=== PATIENT | female | born 1990 | race Two or more races ===

== ENCOUNTER 2019-09-14 09:25 | Emergency (ER) | payer OTHER ==
[2019-09-14 09:43] VITALS: TEMP 97.5; BMI 37.2
--- NOTE | 2019-09-14 10:19 | PDOC ---
History of Present Illness - General Chief Complaint: Vaginal Bleeding Stated Complaint: 5WKS/ BLEEDING Time Seen by Provider: 09/14/19 10:19 History Source: Patient Exam Limitations: No Limitations - History of Present Illness Initial Comments: 28-year-old female with no past medical history A0 (prior twin gestation) currently 8W (LMP 07/17/2019) presented to the emergency department for painless vaginal bleeding since yesterday. Patient reported that she has noted red blood when she uses the bathroom, noting it on the toilet paper when she wipes. She reported she believes is coming from her vagina, and not from her stool. She denied using any pads at all, notice showing those is when she wipes. She denied pelvic pain, cramping, nausea, vomiting, diarrhea, abdominal pain, lightheadedness, chest pain, shortness of breath, syncope. 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 ROS General: denied fever, chills, generalized weakness. HEENT: denied sore throat, rhinorrhea, ear pain. Cardiovascular: denied chest pain, palpitations, syncope, diaphoresis. Respiratory: denied shortness of breath, cough, sputum production, hemoptysis. Gastrointestinal: admitted to vaginal bleeding. denied abdominal pain, nausea, vomiting, diarrhea, constipation, blood in stool, vaginal discharge, pelvic pain. Genitourinary: denied dysuria, increased urinary frequency, hematuria, urinary incontinence, flank pain. Back: denied back pain. Musculoskeletal: denied joint pain, muscle pain, joint swelling. Neurological: denied headache, dizziness, numbness, tingling, weakness. Integumentary: denied rash, laceration, abrasion. Hematologic/Lymphatic: denied bruising or bleeding. PE Constitutional: Well-nourished, Well-developed, appearing stated age. HEENT: head is normocephalic, atraumatic. EOMI. PERRLA. Neck: supple. Full ROM. Cardiovascular: regular heart rhythm. Normal S1 and S2. no murmurs. no pericardial friction rub. Respiratory: clear to auscultation bilaterally. no crackles, rhonchi or wheezing. no stridor. Gastrointestinal: soft, flat, nontender. normal bowel sounds. no rebound, guarding, or masses. Extremities: peripheral pulses intact and equal. no lower extremity edema noted. Neurological: CN 2-12 grossly intact. moves all four extremities. Psych: awake, alert, oriented x3. follows commands. answers questions appropriately. Pelvic: normal external genitalia. cervcal os closed. no CMT. no adnexal tenderness bilaterally. scant dried old blood in vaginal vault. Past History - Past Medical History Allergies/Adverse Reactions: Allergies Allergy/AdvReac Type Severity Reaction Status Date / Time No Known Allergies Allergy Verified 09/14/19 09:40 Home Medications: Ambulatory Orders No Home Medications 0 dose .ROUTE UTDICT 08/04/12 Cephalexin Monohydrate [Keflex -] 500 mg PO BID 7 Days #14 capsule 09/14/19 - Reproductive History (#): 1 Para: 0 - Psycho Social/Smoking Cessation Hx Smoking Status: No Smoking History: Never smoked Have you smoked in the past 12 months: No Number of Cigarettes Smoked Daily: 0 Information on smoking cessation initiated: No Hx Alcohol Use: No Drug/Substance Use Hx: No Hx Substance Use Treatment: No *Physical Exam - Vital Signs Last Vital Signs Temp Pulse Resp BP Pulse Ox 97.5 F L 74 18 107/52 L 100 09/14/19 09:40 09/14/19 09:40 09/14/19 09:40 09/14/19 09:40 09/14/19 09:40 ED Treatment Course - LABORATORY CBC & Chemistry Diagram: 09/14/19 10:52 09/14/19 10:52 Medical Decision Making - Medical Decision Making 28 year old female with above PMH presented to ED for painless vaginal bleeding since yesterday. Initial Vital Signs Temp Pulse Resp BP Pulse Ox 97.5 F L 74 18 107/52 L 100 09/14/19 09:40 09/14/19 09:40 09/14/19 09:40 09/14/19 09:40 09/14/19 09:40 Afebrile. No tachycardia. No tachypnea. Normal BP for . No hypoxia on room air. 09/14/19 12:12 Laboratory Last Values WBC 6.1 K/mm3 (4.0-10.0) 09/14/19 10:52 RBC 4.70 M/mm3 (3.60-5.2) 09/14/19 10:52 Hgb 11.8 GM/dL (10.7-15.3) 09/14/19 10:52 Hct 35.9 % (32.4-45.2) D 09/14/19 10:52 MCV 76.4 fl (80-96) L 09/14/19 10:52 MCH 25.1 pg (25.7-33.7) L 09/14/19 10:52 MCHC 32.9 g/dl (32.0-36.0) 09/14/19 10:52 RDW 18.9 % (11.6-15.6) H 09/14/19 10:52 Plt Count 186 K/MM3 (134-434) D 09/14/19 10:52 MPV 9.2 fl (7.5-11.1) 09/14/19 10:52 Absolute Neuts (auto) 3.9 K/mm3 (1.5-8.0) 09/14/19 10:52 Neutrophils % 64.8 % (42.8-82.8) 09/14/19 10:52 Lymphocytes % 24.2 % (8-40) D 09/14/19 10:52 Monocytes % 9.5 % (3.8-10.2) 09/14/19 10:52 Eosinophils % 1.1 % (0-4.5) 09/14/19 10:52 Basophils % 0.4 % (0-2.0) 09/14/19 10:52 Nucleated RBC % 0 % (0-0) 09/14/19 10:52 PT with INR 12.00 SEC (9.7-13.0) 09/14/19 10:52 INR 1.02 (0.83-1.09) 09/14/19 10:52 PTT (Actin FS) 35.1 SECONDS (25.2-36.5) 09/14/19 10:52 Sodium 139 mmol/L (136-145) 09/14/19 10:52 Potassium 4.4 mmol/L (3.5-5.1) 09/14/19 10:52 Chloride 107 mmol/L (98-107) 09/14/19 10:52 Carbon Dioxide 27 mmol/L (21-32) 09/14/19 10:52 Anion Gap 6 MMOL/L (8-16) L 09/14/19 10:52 BUN 10.2 mg/dL (7-18) 09/14/19 10:52 Creatinine 0.5 mg/dL (0.55-1.3) L 09/14/19 10:52 Est GFR (CKD-EPI)AfAm 151.59 09/14/19 10:52 Est GFR (CKD-EPI)NonAf 130.79 09/14/19 10:52 Random Glucose 91 mg/dL (74-106) 09/14/19 10:52 Calcium 8.3 mg/dL (8.5-10.1) L 09/14/19 10:52 Total Bilirubin 0.2 mg/dL (0.2-1) 09/14/19 10:52 AST 14 U/L (15-37) L 09/14/19 10:52 ALT 23 U/L (13-61) 09/14/19 10:52 Alkaline Phosphatase 77 U/L (45-117) 09/14/19 10:52 Total Protein 7.0 g/dl (6.4-8.2) 09/14/19 10:52 Albumin 3.6 g/dl (3.4-5.0) 09/14/19 10:52 Beta HCG, Quant 9270.3 mIU/ml 09/14/19 10:52 Urine Color Yellow 09/14/19 11:28 Urine Appearance Cloudy 09/14/19 11:28 Urine pH 7.5 (5.0-8.0) 09/14/19 11:28 Ur Specific [place] 1.012 (1.010-1.035) 09/14/19 11:28 Urine Protein Negative (NEGATIVE) 09/14/19 11:28 Urine Glucose (UA) Negative (NEGATIVE) 09/14/19 11:28 Urine Ketones Negative (NEGATIVE) 09/14/19 11:28 Urine Blood 3+ (NEGATIVE) H 09/14/19 11:28 Urine Nitrite Negative (NEGATIVE) 09/14/19 11:28 Urine Bilirubin Negative (NEGATIVE) 09/14/19 11:28 Urine Urobilinogen 0.2 mg/dL (0.2-1.0) 09/14/19 11:28 Ur Leukocyte Esterase Negative (NEGATIVE) 09/14/19 11:28 Urine WBC (Auto) 3 /hpf (0-5) 09/14/19 11:28 Urine RBC (Auto) 1 /hpf (0-4) 09/14/19 11:28 Urine Casts (Auto) 5 /lpf (0-8) 09/14/19 11:28 U Epithel Cells (Auto) 12.6 /HPF (0-5/HPF) 09/14/19 11:28 Urine Bacteria (Auto) 66.6 /hpf (NEGATIVE) 09/14/19 11:28 Urine HCG, Qual Positive 09/14/19 11:28 No leukocytosis. No anemia. Decreased MCV. No thrombocytopenia. No ransaminitis. UTI in -Medications ordered: Keflex 500 mg PO once Pending T&S, TVUS. -US reported they are busy 09/14/19 12:57 TVUS Report: Maynor Gil Name: [facility] DEPARTMENT OF RADIOLOGY Phys: Marlys Khalil RESIDENT : 1990 Age: 28 Sex: F [facility] Acct: [id number] Loc: [address] Exam Date: 09/14/19 Status: [place] [id number] Unit Number: [id number] EXAM#: TYPE/EXAM: RESULT: [id number] US/TRANSVAGINAL US PREG Positive beta hCG level Pelvis ultrasound Transabdominal transvaginal images. Compared to prior pelvis ultrasound dated 11/26/2015 LMP: 07/17/2019 compatible with 8 weeks and 3 days of The uterus measures 9.1 x 5.8 cm in sagittal and AP dimension. An intrauterine gestational sac is present with a mean sac diameter of 6.2 mm compatible with 5 weeks 1 day of gestation. A tiny yolk sac is seen measuring 2 mm. No pole is identified. The right ovary measures 3 x 1.6 cm with a round echogenic density and a hypoechoic center me asuring 1.3 x 1.3 cm likely a corpus luteum cyst. Normal vascular flow, arterial and venous Left ovary measures 2.4 x 1.5 cm with normal vascular flow, arterial and venous. There is no free fluid in the cul-de-sac IMPRESSION: Single intrauterine gestational sac compatible with 5 weeks 1 day of gestation. No pole is identified. Correlation with serial quantitative serum beta hCG and close follow- up ultrasound is needed. 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 Reported By: Kori Grewal MD 09/14/19 1255 Results explained to patient with guyanese translation. Pt informed she will need to return in 48 hours for repeat beta testing. Pt expressed understanding and agreed with plan for care. Pt advised to refrain from inserting anything into vagina, heavy lifting. Pt given return precautions. Pt prescribed Keflex for UTI. First dose given in ED. No need for Rhogam - Rh + Pt discharged. Discharge - Discharge Information Problems reviewed: Yes Clinical Impression/Diagnosis: Vaginal bleeding during , UTI in Condition: Stable Disposition: HOME - Admission No - Additional Discharge Information Prescriptions: Cephalexin Monohydrate [Keflex -] 500 mg PO BID 7 Days #14 capsule - Follow up/Referral Referrals: Sherin Torres MD [Staff Physician] - - Patient Discharge Instructions Patient Printed Discharge Instructions: DI for Urinary Tract Infection (UTI), DI for Vaginal Bleeding During Additional Instructions: You have a urinary tract infection. Urinary tract infections and can cause spontaneous miscarriages. I have sent an antibiotic to your pharmacy, please take all pills as instructed on label. Do not stop early even if you are feeling better. You must return to the emergency department at 48 hours from your initial emergency department visit. Please return to this emergency department, as all of your lab work is in our records. Take Tylenol [id number] if you injure pain. Tylenol is safe in . Follow instructions on the label. Buy over the counter. Return to the emergency department for soaking through two pads over two consecutive hours, lightheadedness, chest pain, shortness of breath, increasing pain, lightheadedness, passing out, fever, or any other new, worsening, or concerning symptoms. Tiene jaja infeccin del tracto urinario. Las infecciones del tracto urinario y el embarazo pueden causar abortos espontneos. Envi un antibitico a barnett farmacia, tome todas las pldoras joan se indica en la etiqueta. No pare temprano, incluso si se siente mejor. Debe regresar al departamento de emergencias a las 48 horas de barnett visita inicial al departamento de emergencias. Regrese a amy departamento de emergencias, ya que todo barnett trabajo de laboratorio est en nuestros registros. [place] Tylenol sin receta si le duele el dolor. Tylenol es seguro en el embarazo. Siga las instrucciones en la etiqueta. Comprar sin receta. Regrese al departamento de emergencias para empaparse con dos almohadillas jonathan dos horas consecutivas, mareos, dolor en el pecho, dificultad para respirar, aumento del dolor, mareos, desmayos, fiebre o cualquier otro sntoma nuevo, que empeore o se relacione. Print Language: PORTUGUESE - Post Discharge Activity Work/Back to School Note: Back to Work
[2019-09-14 11:03] LABS: BASO % 0.4 % (0-2.0); EOS % 1.1 % (0-4.5); HEMATOCRIT 35.9 % (32.4-45.2); HEMOGLOBIN 11.8 GM/dL (10.7-15.3); LYMPH % 24.2 % (8-40); MCH 25.1 pg (25.7-33.7); MCHC 32.9 g/dl (32.0-36.0); MEAN CELL VOLUME 76.4 fl (80-96); MEAN PLT VOLUME 9.2 fl (7.5-11.1); MONO % 9.5 % (3.8-10.2); NEUT % 64.8 % (42.8-82.8); PLATELET COUNT 186 K/MM3 (134-434); RDW 18.9 % (11.6-15.6); WHITE BLOOD COUNT 6.1 K/mm3 (4.0-10.0)
[2019-09-14 11:16] LABS: INR 1.02 (0.83-1.09)
[2019-09-14 11:19] LABS: ACTIVATED PTT 35.1 SECONDS (25.2-36.5)
[2019-09-14 11:58] LABS: ALBUMIN 3.6 g/dl (3.4-5.0); BILIRUBIN,TOTAL 0.2 mg/dL (0.2-1); BLOOD UREA NITROGEN 10.2 mg/dL (7-18); CALCIUM 8.3 mg/dL (8.5-10.1); CREATININE 0.5 mg/dL (0.55-1.3); POTASSIUM 4.4 mmol/L (3.5-5.1)
[2019-09-14 11:59] LABS: HCG,QUALITATIVE URINE Positive
[2019-09-14 12:02] LABS: EPI CELLS 12.6 /HPF (0-5/HPF); HYALINE CASTS 5 /lpf (0-8); PH,URINE 7.5 (5.0-8.0); URINE APPEARANCE CLOUDY; URINE BACTERIA 66.6 /hpf (NEGATIVE); URINE BILIRUBIN NEGATIVE (NEGATIVE); URINE COLOR YELLOW; URINE GLUCOSE (UA) NEGATIVE (NEGATIVE); URINE KETONE NEGATIVE (NEGATIVE); URINE LEUK ESTERASE NEGATIVE (NEGATIVE); URINE NITRITE NEGATIVE (NEGATIVE); URINE PROTEIN NEGATIVE (NEGATIVE); URINE RBC 1 /hpf (0-4); URINE UROBILINOGEN 0.2 mg/dL (0.2-1.0); URINE WBC 3 /hpf (0-5)
[2019-09-14] MEDS ORDERED: CEPHALEXIN MONOHYDRATE 500 MG CAPSULE (UD) PO ONE (12:41)
[2019-09-14] MEDS ORDERED: CEPHALEXIN MONOHYDRATE 500 MG CAPSULE (UD) ONE (13:05)
--- NOTE | 2019-09-14 13:22 | PDOC ---
Documentation entered by Ludivina Scott SCRIBE, acting as scribe for Prema Vyas MD. Prema Vyas MD: This documentation has been prepared by the Tyler turner Nirvannie, SCRIBE, under my direction and personally reviewed by me in its entirety. I confirm that the documentation accurately reflects all work, treatment, procedures, and medical decision making performed by me. Attending Attestation - Resident Resident Name: Marlys Khalil - ED Attending Attestation I have performed the following: I have examined & evaluated the patient, The case was reviewed & discussed with the resident, I agree w/resident's findings & plan, Exceptions are as noted - HPI HPI: 09/14/19 12:08 The patient is a 28 year old 5 weeks female , with no significant past medical history, who presents to the emergency department with 2 days vaginal bleeding. Patient describes her vaginal bleeding as brownish/red in coloration. Allergies: NKA LMP: 07/17 - Physicial Exam PE: GENERAL: Awake, alert, and fully oriented, in no acute distress HEAD: No signs of trauma EYES: PERRLA, EOMI, sclera anicteric, conjunctiva clear ENT: Auricles normal inspection, hearing grossly normal, nares patent, oropharynx clear without exudates. Moist mucosa NECK: Normal ROM, supple, no lymphadenopathy, JVD, or masses LUNGS: Breath sounds equal, clear to auscultation bilaterally. No wheezes, and no crackles HEART: Regular rate and rhythm, normal S1 and S2, no murmurs, rubs or gallops ABDOMEN: Soft, nontender, normoactive bowel sounds. No guarding, no rebound. No masses EXTREMITIES: Normal range of motion, no edema. No clubbing or cyanosis. No cords, erythema, or tenderness NEUROLOGICAL: Cranial nerves II through XII grossly intact. Normal speech, normal gait. Motor and sensation intact SKIN: Warm, dry, normal turgor, no rashes or lesions noted. - Medical Decision Making Pt is approximately 8 WGA by LMP, but ultrasound appears to be 5 WGA. Counseled patient to return in 2 days for repeat B-HCG, poss sono depending on findings.
[2019-09-14 13:55] VITALS: BP 101/60; PULSE 64
== END 2019-09-14 13:45 | disposition home or self-care (01) ==
LOC: JER 09:25
DX: O26.891 Other specified pregnancy related conditions, first trimester (principal); Z3A.08 8 weeks gestation of pregnancy; N39.0 Urinary tract infection, site not specified
CPT/HCPCS: 36415; 76817-TC; 80053; 81003; 84702; 84703; 85025; 85610; 85730; 86850; 86900; 86901; 87086; 99284-25

== ENCOUNTER 2019-09-17 08:59 | Emergency (ER) | payer OTHER ==
[2019-09-17 09:05] VITALS: BP 123/50; PULSE 67; TEMP 97.8; BMI 23.6
--- NOTE | 2019-09-17 09:42 | PDOC ---
History of Present Illness - General Chief Complaint: [facility] [place] Stated Complaint: 5 W PREG/URINARY PROBLEM Time Seen by Provider: 09/17/19 09:21 History Source: Patient Exam Limitations: No Limitations - History of Present Illness Initial Comments: 09/17/19 09:41 Patient is a 28-year-old female who is 8 weeks 6 days gestation who presents to the ED for a repeat beta-hCG. She was seen 2 days ago and diagnosed with UTI and after having some vaginal bleeding. She has no pain and states her bleeding has slowed down tremendously. She denies any fevers or chills. She has been taking her antibiotics as prescribed. She denies any dysuria or hematuria. Her previous beta-hCG was 9270. She states she is otherwise feeling well and was advised to come to the ED for repeat blood work. She has an appointment with her HOT TAR ROOFER in 3 days for her first evaluation. Past History - Past Medical History Allergies/Adverse Reactions: Allergies Allergy/AdvReac Type Severity Reaction Status Date / Time No Known Allergies Allergy Verified 09/14/19 09:40 Home Medications: Ambulatory Orders No Home Medications 0 dose .ROUTE UTDICT 08/04/12 Cephalexin Monohydrate [Keflex -] 500 mg PO BID 7 Days #14 capsule 09/14/19 Asthma: No Cancer: No Cardiac Disorders: No Diabetes: No HTN: No Seizures: No Thyroid Disease: No - Surgical History Cholecystectomy: Yes - Reproductive History Is Patient Now?: Yes (#): 1 Para: 0 - Psycho Social/Smoking Cessation Hx Smoking Status: No Smoking History: Never smoked Have you smoked in the past 12 months: No Number of Cigarettes Smoked Daily: 0 Information on smoking cessation initiated: No Hx Alcohol Use: No Drug/Substance Use Hx: No Hx Substance Use Treatment: No Review of Systems - Review of Systems Comments:: 09/17/19 09:43 - Review of Systems Able to Perform ROS?: Yes Constitutional: No: Fever, Chills, Loss of Appetite, Night Sweats, Weakness HEENTM: No: Eye Pain, Vision changes, Ear Pain, Throat Pain, Throat Swelling, Mouth Pain, Difficulty Swallowing Respiratory: No: Cough, Shortness of Breath, Wheezing, Sputum Production Cardiac (ROS): No: Chest Pain, Chest Tightness, Palpitations, Irregular Heart Beat, Edema ABD/GI: No: Nausea, Vomiting, Abdominal Pain, Diarrhea : No Dysuria, No Hematuria, No Frequency, No Urgency, positive: Previous vaginal bleeding which has stopped Musculoskeletal: No: Muscle Pain, Back Pain, Joint Pain, Muscle Weakness, Neck Pain Integumentary: No: Lesions, Rash Neurological: No: Headache, Numbness, Tingling, Weakness, Speech Difficulties *Physical Exam - Vital Signs Last Vital Signs Temp Pulse Resp BP Pulse Ox 97.8 F 67 16 123/50 L 99 09/17/19 09:03 09/17/19 09:03 09/17/19 09:03 09/17/19 09:03 09/17/19 09:03 - Physical Exam 09/17/19 09:43 - Physical Exam General Appearance: Nourished, Appropriately Dressed, No Distress HEENT: EOMI, Normal Voice, No Muffled/Hoarse voice, No Nasal Congestion, No Rhinorrhea, Hearing Grossly Normal Neck: Supple, No Lymphadenopathy (R), No Lymphadenopathy (L), No Rigidity, No Decreased range of motion Respiratory/Chest: Lungs Clear, Normal Breath Sounds. No Respiratory Distress, No Accessory Muscle Use Cardiovascular: Regular Rhythm, Regular Rate, S1, S2 Gastrointestinal/Abdominal: Normal Bowel Sounds, Soft. Non-tender, No Guarding, No Rebound, No Rigidity Musculoskeletal: Normal Inspection. Extremity: Normal Capillary Refill, Normal Inspection Integumentary: Normal Color, Dry. No Rash Neurologic: family day carer II-XII NML intact, Fully Oriented, Alert, Normal Mood/Affect, Normal Response ED Treatment Course - ADDITIONAL ORDERS Additional order review: 09/17/19 11:06 Laboratory Tests 09/17/19 09:34 Beta HCG, Quant 46433.0 Medical Decision Making - Medical Decision Making 09/17/19 09:44 Assessment: Patient is a 28-year-old female with vaginal bleeding and 3 days ago. She presents today for a repeat beta-hCG. Plan: -Repeat beta-hCG ordered and sent to the lab -Will reassess 09/17/19 11:05 The he has increased by double since her last visit on 09/14/2019. She has an appointment with Dr. Buchanan on 09/21/2019 for repeat evaluation. She has been made aware that she will likely need repeat blood work and an ultrasound. She has been given strict return precautions such as worsening abdominal pain, increased vaginal bleeding or any other worsening symptoms. She understands and agrees with this treatment plan and she is stable for discharge. Discharge - Discharge Information Problems reviewed: Yes Clinical Impression/Diagnosis: Vaginal bleeding during Condition: Stable Disposition: HOME - Follow up/Referral Referrals: Baldomero Buchanan MD [Staff Physician] - 3 days - Patient Discharge Instructions Patient Printed Discharge Instructions: DI for Vaginal Bleeding During Additional Instructions: Your hormone number has gone up by double as it is supposed to. Since your bleeding has slowed and you have no pain we will discharge you with follow-up to Dr. Buchanan for your appointment on Tuesday. Avoid any heavy lifting or strenuous physical activity. Do not put anything in your vagina and avoid sexual" intercourse until you are cleared. Return for worsening abdominal pain, heavy vaginal bleeding or any other worsening symptoms. - Post Discharge Activity Work/Back to School Note: Back to Work
== END 2019-09-17 11:10 | disposition home or self-care (01) ==
LOC: JERFT 08:59
DX: O26.891 Other specified pregnancy related conditions, first trimester (principal); O20.8 Other hemorrhage in early pregnancy; Z3A.08 8 weeks gestation of pregnancy
CPT/HCPCS: 36415; 84702; 99283-25

== ENCOUNTER 2020-07-02 04:18 | Day surgery (SDC) | payer OTHER ==
[2020-06-30 10:48] VITALS: BMI 34.7
[2020-07-02] MEDS ORDERED: BUPIVACAINE HCL 100 ML ONE (11:36)
[2020-07-02] MEDS ORDERED: SUCCINYLCHOLINE CHLORIDE 200 MG/10 ML SYRINGE ONE (12:07)
[2020-07-02] MEDS ORDERED: ROCURONIUM BROMIDE 100 MG/10 ML VIAL ONE (12:07)
[2020-07-02] MEDS ORDERED: PROPOFOL 20 ML ONE ×2 (12:07→12:48)
[2020-07-02] MEDS ORDERED: MIDAZOLAM HCL 2 MG/2 ML SINGLE DOSE VIAL ONE (12:07)
[2020-07-02] MEDS ORDERED: ONDANSETRON 4 MG/2 ML VIAL ONE (12:07)
[2020-07-02] MEDS ORDERED: DEXAMETHASONE SOD PHOSPHATE 4 MG/1 ML VIAL ONE (12:07)
[2020-07-02] MEDS ORDERED: BUPIVACAINE HCL/PF 0.5% (5 MG/ML) 30 ML VIAL IJ ONE (12:35)
[2020-07-02] MEDS ORDERED: GLYCOPYRROLATE 0.2 MG/1 ML VIAL ONE (13:03)
[2020-07-02] MEDS ORDERED: NEOSTIGMINE METHYLSULFATE 0.5 MG/ML - 10 ML MDV ONE (13:03)
[2020-07-02] MEDS ORDERED: oxyCODONE HCL 5 MG TABLET PO PRN (15:01)
[2020-07-02] MEDS ORDERED: oxyCODONE HCL 5 MG TABLET PO ONE (15:10)
[2020-07-02 16:05] VITALS: BP 100/64; PULSE 57; TEMP 97.7
== END 2020-07-02 16:30 | disposition home or self-care (01) ==
LOC: JASU-SURG 04:18
PROVIDERS: ATTEND Student in an Organized Health Care Education/Training Program
PROC: 0UB74ZZ Excision of Bilateral Fallopian Tubes, Percutaneous Endoscopic Approach (ICD-10-PCS; principal; 2020-07-02 12:00)
DX: Z30.2 Encounter for sterilization (principal)
CPT/HCPCS: 88302-TC; 94760